=== PATIENT | male | born 1975 | race Caucasian/White ===

== ENCOUNTER 2016-09-05 06:34 | Emergency (ER) | payer OTHER ==
[~2016-09-05] VITALS: Ht 180.3 cm; Wt 90.7 kg
[~2016-09-05 06:34] MED LIST: HYDR-2762 PO
--- NOTE | 2016-09-05 06:43 | PHYS DOC ---
Past Medical History Past Medical History: Alcoholism, Arthritis, Other Additional Past Medical Histor: PSORIASIS Past Surgical History: Other Additional Past Surgical Histo: R HAND Alcohol Use: Heavy Drug Use: None Adult General Chief Complaint Chief Complaint: WITHDRAWL HPI HPI Patient is a 41 year old male presenting to emergency Department for concerns of withdrawal and wanting to detox. Patient says that he has been on a lee recently and drinks a fifth of alcohol daily his last drink was approximately 7 hours prior to arrival. His mother and sister want him to quit and he is willing to go to the detox process but is unwilling to commit to rehabilitation at this time. Patient has tried quitting before in the past including last year where he was admitted here and then stop drinking alcohol for several months but started back up again. He says that he feels somewhat shaky and nauseated. He denies any prior withdrawal seizure history. He is in no obvious distress but somewhat tachycardic and hypertensive. Review of Systems Review of Systems Constitutional: Denies fever or chills [] Eyes: Denies change in visual acuity, redness, or eye pain [] HENT: Denies nasal congestion or sore throat [] Respiratory: Denies cough or shortness of breath [] Cardiovascular: No additional information not addressed in HPI [] GI: Denies abdominal pain. + nausea. No vomiting, bloody stools or diarrhea [] : Denies dysuria or hematuria [] Musculoskeletal: Denies back pain. + diffuse myalgias and arthralgias Integument: Denies rash or skin lesions [] Neurologic: Denies headache, focal weakness or sensory changes [] Current Medications Current Medications Current Medications Medications (Trade) Dose Ordered Sig/Sarahi Start Time Stop Time Status Last Admin Dose Admin Clonidine HCl (Catapres) 0.1 mg 1X ONCE 09/05/16 07:00 09/05/16 07:01 DC 09/05/16 07:14 0.1 MG Lorazepam (Ativan) 1 mg 1X ONCE 09/05/16 07:00 09/05/16 07:01 DC 09/05/16 07:13 1 MG Ondansetron HCl (Zofran) 4 mg 1X ONCE 09/05/16 07:00 09/05/16 07:01 DC 09/05/16 07:10 4 MG Sodium Chloride 1,000 ml @ 1,000 mls/hr 1X ONCE 09/05/16 07:00 09/05/16 07:59 DC 09/05/16 07:09 1,000 MLS/HR Allergies Allergies Allergies Coded Allergies Type Severity Reaction Last Updated Verified No Known Drug Allergies 07/23/15 No Physical Exam Physical Exam Constitutional: Well developed, well nourished, no acute distress, non-toxic appearance. [] HENT: Normocephalic, atraumatic, bilateral external ears normal, oropharynx moist, no oral exudates, nose normal. [] Eyes: PERRLA, EOMI, conjunctiva normal, no discharge. [] Neck: Normal range of motion, no tenderness, supple, no stridor. [] Cardiovascular:Heart rate tachycardic with regular rhythm, no murmur [] Lungs & Thorax: Bilateral breath sounds clear to auscultation [] Abdomen: Bowel sounds normal, soft, no tenderness, no masses, no pulsatile masses. [] Skin: Warm, dry, no erythema, no rash. [] Back: No tenderness, no CVA tenderness. [] Extremities: No tenderness, no cyanosis, no clubbing, ROM intact, no edema. [] Neurologic: Alert and oriented X 3, normal motor function, normal sensory function, no focal deficits noted. [] Current Patient Data Vital Signs Vital Signs Date Time Temp Pulse Resp B/P (MAP) Pulse Ox O2 Delivery O2 Flow Rate FiO2 09/05/16 07:14 104 121/79 09/05/16 06:41 98.9 18 97 Room Air 98.9 Lab Values Laboratory Tests Test 09/05/16 06:45 09/05/16 07:10 White Blood Count 9.2 x10^3/uL (4.0-11.0) Red Blood Count 4.76 x10^6/uL (4.30-5.70) Hemoglobin 13.9 g/dL (13.0-17.5) Hematocrit 41.6 % (39.0-53.0) Mean Corpuscular Volume 87 fL (79-100) Mean Corpuscular Hemoglobin 29 pg (25-35) Mean Corpuscular Hemoglobin Concent 34 g/dL (31-37) Red Cell Distribution Width 13.9 % (11.5-14.5) Platelet Count 349 x10^3/uL (140-400) Neutrophils (%) (Auto) 68 % (31-73) Lymphocytes (%) (Auto) 23 % (24-48) L Monocytes (%) (Auto) 6 % (0-9) Eosinophils (%) (Auto) 3 % (0-3) Basophils (%) (Auto) 1 % (0-3) Neutrophils # (Auto) 6.3 x10^3uL (1.8-7.7) Lymphocytes # (Auto) 2.1 x10^3/uL (1.0-4.8) Monocytes # (Auto) 0.5 x10^3/uL (0.0-1.1) Eosinophils # (Auto) 0.2 x10^3/uL (0.0-0.7) Basophils # (Auto) 0.1 x10^3/uL (0.0-0.2) Sodium Level 137 mmol/L (136-145) Potassium Level 4.3 mmol/L (3.5-5.1) Chloride Level 99 mmol/L (98-107) Carbon Dioxide Level 22 mmol/L (21-32) Anion Gap 16 (6-14) H Blood Urea Nitrogen 13 mg/dL (8-26) Creatinine 0.7 mg/dL (0.7-1.3) Estimated GFR (Cockcroft-Gault) 125.5 BUN/Creatinine Ratio 19 (6-20) Glucose Level 146 mg/dL (70-99) H Calcium Level 9.2 mg/dL (8.5-10.1) Magnesium Level 2.1 mg/dL (1.8-2.4) Total Bilirubin 0.7 mg/dL (0.2-1.0) Aspartate Amino Transferase (AST) 62 U/L (15-37) H Alanine Aminotransferase (ALT) 67 U/L (16-63) H Alkaline Phosphatase 73 U/L (46-116) Creatine Kinase 252 U/L (39-308) Total Protein 8.1 g/dL (6.4-8.2) Albumin 3.8 g/dL (3.4-5.0) Albumin/Globulin Ratio 0.9 (1.0-1.7) L Lipase 297 U/L (73-393) Thyroid Stimulating Hormone (TSH) 0.802 uIU/mL (0.358-3.74) Salicylates Level 3.1 mg/dL (2.8-20.0) Salicylate Last Dose Date Unknown Salicylate Last Dose Time Unknown Acetaminophen Level < 2.0 mcg/ml (10-30) L Acetaminophen Last Dose Date Unknown Acetaminophen Last Dose Time Unknown Ethyl Alcohol Level 179 mg/dL (0-10) H Urine Opiates Screen Neg (NEG) Urine Methadone Screen Neg (NEG) Urine Barbiturates Neg (NEG) Urine Phencyclidine Screen Neg (NEG) Urine Amphetamine/Methamphetamine Neg (NEG) Urine Benzodiazepines Screen Neg (NEG) Urine Cocaine Screen Pos (NEG) Urine Cannabinoids Screen Neg (NEG) Urine Ethyl Alcohol Pos (NEG) Laboratory Tests 09/05/16 06:45 Laboratory Tests 09/05/16 06:45 EKG EKG [] Radiology/Procedures Radiology/Procedures [] Course & Med Decision Making Course & Med Decision Making Patient's withdrawal symptoms are fairly minor as he only has very minor tremors and no tongue fasciculations. He is slightly tachycardic and hypertensive. I spoke to Cherelle and she will come and speak to patient about options for detox. Cherelle of the PACT team spoke to the patient and it does not seem necessary for inpatient detox and he is requesting outpatient resources at this time. He is medically stable with very minor withdrawal symptoms at this time so I will prescribe him Librium for withdrawal symptoms and then Zofran for nausea and told him to drink plenty of water and eat a good diet and come back to the ER sooner with worsening tremors pain confusion seizures or other general concerns. Patient aware and agreeable with plan for discharge and verbalized understanding of the need for short-term follow-up and strict ER return precautions discussed as above. Dragon Disclaimer Dragon Disclaimer This electronic medical record was generated, in whole or in part, using a voice recognition dictation system. Departure Departure Impression: Primary Impression: Alcohol withdrawal Additional Impression: Drug abuse Disposition: 01 HOME, SELF-CARE Condition: GOOD Referrals: BRUNO KRUGER MD (PCP) Patient Instructions: Alcohol Withdrawal Additional Instructions: DRINK PLENTY OF WATER AND EAT A GOOD DIET. USE THE PRESCRIBED MEDICATION ONLY IF YOU ARE TRYING TO QUIT ALCOHOL AND DO NOT DRINK ANY ALCOHOL. Scripts Ondansetron (ZOFRAN ODT) 4 Mg Tab.rapdis 4 MG PO BID Y for NAUSEA/VOMITING, #10 TAB Prov: OLAMIDE BRUNO DO 09/05/16 [Librium] No Conflict Check 25 MG Q8HRS Y for WITHDRAWAL IRRITABILITY, #10 TAKE 1 PILL EVERY 8 HOURS FOR WITHDRAWAL FOR THE 1ST 2 DAYS AND THEN PRN WITHDRAWAL AFTERWARDS. Prov: OLAMIDE BRUNO DO 09/05/16 Problem Qualifiers Primary Impression: Alcohol withdrawal Complication of substance-induced condition: uncomplicated Qualified Codes: F10.230 - Alcohol dependence with withdrawal, uncomplicated OLAMIDE BRUNO DO September 05, 2016 06:43
[2016-09-05 07:00] LABS: BASO # 0.1 x10^3/uL (0.0-0.2); BASO % 1 % (0-3); EOS % 3 % (0-3); HEMATOCRIT 41.6 % (39.0-53.0); HEMOGLOBIN 13.9 g/dL (13.0-17.5); LYMPH # 2.1 x10^3/uL (1.0-4.8); LYMPH % 23 % (24-48); MEAN CORPUSCULAR HEMOGLOBIN 29 pg (25-35); MEAN CORPUSCULAR HGB CONC 34 g/dL (31-37); MEAN CORPUSCULAR VOLUME 87 fL (79-100); MONO % 6 % (0-9); NEUT % 68 % (31-73); PLATELET COUNT 349 x10^3/uL (140-400); RED BLOOD COUNT 4.76 x10^6/uL (4.30-5.70); RED CELL DISTRIBUTION WIDTH 13.9 % (11.5-14.5); WHITE BLOOD COUNT 9.2 x10^3/uL (4.0-11.0)
[2016-09-05] MEDS ORDERED: ONDANSETRON PF 4 MG/2 ML VIAL. IV ONE (07:00)
[2016-09-05] MEDS ORDERED: IV NORMAL SALINE 1000ML BAG 1,000 ML IV ONE (07:00)
[2016-09-05] MEDS ORDERED: cloNIDine HCL 0.1 MG TABLET PO ONE (07:00)
[2016-09-05 07:14] LABS: CALCIUM 9.2 mg/dL (8.5-10.1); CREATININE 0.7 mg/dL (0.7-1.3); GFR 125.5
[2016-09-05 07:17] LABS: ETHANOL 179 mg/dL (0-10); POTASSIUM 4.3 mmol/L (3.5-5.1)
[2016-09-05 07:20] LABS: ALBUMIN 3.8 g/dL (3.4-5.0); ALBUMIN/GLOBULIN RATIO 0.9 (1.0-1.7); MAGNESIUM 2.1 mg/dL (1.8-2.4); TOTAL BILIRUBIN 0.7 mg/dL (0.2-1.0); TOTAL PROTEIN 8.1 g/dL (6.4-8.2)
[2016-09-05 07:25] LABS: BARBITURATES NEG (NEG); BENZODIAZEPINES NEG (NEG); CANNABINOIDS NEG (NEG); COCAINE POS (NEG); METHADONE NEG (NEG); OPIATES NEG (NEG); PHENCYCLIDINE NEG (NEG)
[2016-09-05 08:41] VITALS: BP 128/84
[2016-09-05] MEDS ORDERED: LIBRIUM (08:58)
[2016-09-05] MEDS ORDERED: ONDA4TAB10 PO (08:58)
== END 2016-09-05 09:14 | disposition home or self-care (01) ==
LOC: ER 06:34
DX: F10.239 Alcohol dependence with withdrawal, unspecified (principal); F19.10 Other psychoactive substance abuse, uncomplicated; M19.90 Unspecified osteoarthritis, unspecified site; I10 Essential (primary) hypertension
CPT/HCPCS: 36415; 80053; 80305; 80320; 82550; 83690; 83735; 84443; 85027; 96361; 96374; 96375; 99284; G6038; J2060; J2405; J7030; G0480; G0481; 80196

== ENCOUNTER 2019-01-01 12:27 | Inpatient (IN) | payer OTHER ==
[~2019-01-01] VITALS: Ht 180.3 cm; Wt 92.2 kg
[~2019-01-01 12:27] MED LIST changes: -HYDR-2762 PO; +HYDR-2765 PO; +LIBRIUM; +ONDA4TAB10 PO
[2019-01-01 13:12] LABS: BASO # 0.1 x10^3/uL (0.0-0.2); BASO % 1 % (0-3); EOS % 0 % (0-3); HEMATOCRIT 39.5 % (39.0-53.0); HEMOGLOBIN 13.3 g/dL (13.0-17.5); LYMPH # 1.2 x10^3/uL (1.0-4.8); LYMPH % 13 % (24-48); MEAN CORPUSCULAR HEMOGLOBIN 27 pg (25-35); MEAN CORPUSCULAR HGB CONC 34 g/dL (31-37); MEAN CORPUSCULAR VOLUME 81 fL (79-100); MONO # 0.6 x10^3/uL (0.0-1.1); MONO % 7 % (0-9); NEUT # 6.8 x10^3/uL (1.8-7.7); NEUT % 78 % (31-73); PLATELET COUNT 360 x10^3/uL (140-400); RED BLOOD COUNT 4.89 x10^6/uL (4.30-5.70); RED CELL DISTRIBUTION WIDTH 14.7 % (11.5-14.5); WHITE BLOOD COUNT 8.7 x10^3/uL (4.0-11.0)
[2019-01-01] MEDS ORDERED: MULTIVIT INFUSN,ADULT 4,VIT K 10 ML, THIAMINE INJ 100 MG, FOLIC ACID INJ 1 MG in IV NOR... IV ONE ×2 (13:15→15:45)
[2019-01-01 13:18] LABS: PROTHROMBIN TIME PATIENT 12.6 SEC (11.7-14.0)
[2019-01-01 13:21] LABS: CALCIUM 10.3 mg/dL (8.5-10.1); CREATININE 0.9 mg/dL (0.7-1.3); POTASSIUM 3.7 mmol/L (3.5-5.1)
[2019-01-01 13:26] LABS: ALBUMIN 3.9 g/dL (3.4-5.0); DIRECT BILIRUBIN 0.2 mg/dL (0.0-0.2); MAGNESIUM 1.4 mg/dL (1.8-2.4); TOTAL BILIRUBIN 0.9 mg/dL (0.2-1.0); TOTAL PROTEIN 7.9 g/dL (6.4-8.2)
[2019-01-01] MEDS ORDERED: ONDANSETRON PF 4 MG/2 ML VIAL. IV ONE (13:30)
[2019-01-01] MEDS ORDERED: MAGNESIUM SULFATE 2GM 50 ML IV ONE (14:15)
--- NOTE | 2019-01-01 14:53 | PHYS DOC ---
Past Medical History Past Medical History: Arthritis, Depression Additional Past Medical Histor: PSORIASIS Past Surgical History: Other Additional Past Surgical Histo: R HAND Alcohol Use: Heavy Drug Use: None Adult General Chief Complaint Chief Complaint: WITHDRAWL HPI HPI Patient is a 43 year old male who presents with complaining of alcohol withdrawal. Patient states he had history of alcoholism off and on for many years and was sober for several months and started to drink fifth of whiskey per day for the last 1 week with the last shot last night.Patient states he ran out of alcohol and because of closing the liquor store on Wednesday was not able to get any more alcohol and had shaking and weakness with nausea. Patient denies hallucination and suicidal and homicidal ideation history of seizure with alcohol withdrawal but had hospitalization because of alcohol withdrawal previously. Review of Systems Review of Systems Constitutional: Denies fever or chills [] Eyes: Denies change in visual acuity, redness, or eye pain [] HENT: Denies nasal congestion or sore throat [] Respiratory: Denies cough or shortness of breath [] Cardiovascular: No additional information not addressed in HPI [] GI: Denies abdominal pain, vomiting, bloody stools or diarrhea, reports nausea [] : Denies dysuria or hematuria [] Musculoskeletal: Denies back pain or joint pain [] Integument: Denies rash or skin lesions [] Neurologic: Denies headache, focal weakness or sensory changes [] Endocrine: Denies polyuria or polydipsia [] All other systems were reviewed and found to be within normal limits, except as documented in this note. Current Medications Current Medications Current Medications Medications (Trade) Dose Ordered Sig/Sarahi Start Time Stop Time Status Last Admin Dose Admin Lorazepam (Ativan Inj) 2 mg 1X ONCE 01/01/19 13:30 01/01/19 13:31 DC 01/01/19 13:23 2 MG Magnesium Sulfate 50 ml @ 25 mls/hr 1X ONCE 01/01/19 14:15 01/01/19 16:14 DC 01/01/19 14:27 25 MLS/HR Multivitamins 10 ml/Thiamine HCl 100 mg/Folic Acid 1 mg/Sodium Chloride 1,011.2 ml @ 1,000 mls/ hr 1X ONCE 01/01/19 13:15 01/01/19 14:15 DC 01/01/19 13:12 1,000 MLS/HR Ondansetron HCl (Zofran) 4 mg 1X ONCE 01/01/19 13:30 01/01/19 13:31 DC 01/01/19 13:23 4 MG Allergies Allergies Allergies Coded Allergies Type Severity Reaction Last Updated Verified No Known Drug Allergies 07/23/15 No Physical Exam Physical Exam Constitutional: Well developed, well nourished, mild distress, non-toxic appearance. [] HENT: Normocephalic, atraumatic. Eyes: PERRLA, EOMI, conjunctiva normal, no discharge. [] Neck: Normal range of motion, no tenderness, supple, no stridor. [] Cardiovascular: Tachycardia, no murmur [] Lungs & Thorax: Bilateral breath sounds clear to auscultation [] Abdomen: Bowel sounds normal, soft, no tenderness, no masses, no pulsatile masses. [] Skin: Warm, dry, no erythema, no rash. [] Back: No tenderness, no CVA tenderness. [] Extremities: No tenderness, no cyanosis, no clubbing, ROM intact, no edema. [] Neurologic: Alert and oriented X 3, no focal deficits noted. [] Psychologic: Affect anxious, judgement normal, mood normal. [] Current Patient Data Vital Signs Vital Signs Date Time Temp Pulse Resp B/P (MAP) Pulse Ox O2 Delivery O2 Flow Rate FiO2 01/01/19 13:44 96 18 130/74 (92) 98 01/01/19 13:17 Room Air 01/01/19 12:40 98.7 98.7 Lab Values Laboratory Tests Test 01/01/19 12:55 White Blood Count 8.7 x10^3/uL (4.0-11.0) Red Blood Count 4.89 x10^6/uL (4.30-5.70) Hemoglobin 13.3 g/dL (13.0-17.5) Hematocrit 39.5 % (39.0-53.0) Mean Corpuscular Volume 81 fL (79-100) Mean Corpuscular Hemoglobin 27 pg (25-35) Mean Corpuscular Hemoglobin Concent 34 g/dL (31-37) Red Cell Distribution Width 14.7 % (11.5-14.5) H Platelet Count 360 x10^3/uL (140-400) Neutrophils (%) (Auto) 78 % (31-73) H Lymphocytes (%) (Auto) 13 % (24-48) L Monocytes (%) (Auto) 7 % (0-9) Eosinophils (%) (Auto) 0 % (0-3) Basophils (%) (Auto) 1 % (0-3) Neutrophils # (Auto) 6.8 x10^3/uL (1.8-7.7) Lymphocytes # (Auto) 1.2 x10^3/uL (1.0-4.8) Monocytes # (Auto) 0.6 x10^3/uL (0.0-1.1) Eosinophils # (Auto) 0.0 x10^3/uL (0.0-0.7) Basophils # (Auto) 0.1 x10^3/uL (0.0-0.2) Prothrombin Time 12.6 SEC (11.7-14.0) Prothrombin Time INR 1.0 (0.8-1.1) Sodium Level 139 mmol/L (136-145) Potassium Level 3.7 mmol/L (3.5-5.1) Chloride Level 99 mmol/L (98-107) Carbon Dioxide Level 29 mmol/L (21-32) Anion Gap 11 (6-14) Blood Urea Nitrogen 9 mg/dL (8-26) Creatinine 0.9 mg/dL (0.7-1.3) Estimated GFR (Cockcroft-Gault) 93.0 Glucose Level 99 mg/dL (70-99) Calcium Level 10.3 mg/dL (8.5-10.1) H Magnesium Level 1.4 mg/dL (1.8-2.4) L Total Bilirubin 0.9 mg/dL (0.2-1.0) Direct Bilirubin 0.2 mg/dL (0.0-0.2) Aspartate Amino Transferase (AST) 24 U/L (15-37) Alanine Aminotransferase (ALT) 21 U/L (16-63) Alkaline Phosphatase 88 U/L (46-116) Troponin I Quantitative < 0.017 ng/mL (0.000-0.055) Total Protein 7.9 g/dL (6.4-8.2) Albumin 3.9 g/dL (3.4-5.0) Thyroid Stimulating Hormone (TSH) 1.378 uIU/mL (0.358-3.74) Ethyl Alcohol Level < 10 mg/dL (0-10) Laboratory Tests 01/01/19 12:55 Laboratory Tests 01/01/19 12:55 EKG EKG [] Radiology/Procedures Radiology/Procedures [] Course & Med Decision Making Course & Med Decision Making Pertinent Labs and Imaging studies reviewed. (See chart for details) Evaluation of patient in ER showed 43-year-old male patient with history of alcohol abuse and sign of alcohol withdrawal.Patient requiring admission for further evaluation and treatment. Discussed with Dr. Lawrence who is in agreement with admission. Discussed findings and plan with patient and family, who acknowledge understanding and agreement. Dragon Disclaimer Dragon Disclaimer This electronic medical record was generated, in whole or in part, using a voice recognition dictation system. Departure Departure Impression: Primary Impression: Delirium tremens Additional Impression: Hypomagnesemia Disposition: 09 ADMITTED INPATIENT (at 1440) Admitting Physician: CASSANDRA (Dr. Lawrence accepted admission at 1444) Condition: IMPROVED Referrals: BRUNO KRUGER MD (PCP) Problem Qualifiers SEAN HILLIARD MD Jan 01, 2019 14:53
--- NOTE | 2019-01-01 15:02 | PDOC1 ---
History and Physical Date of Admission Date of Admission DATE: 01/01/19 TIME: 14:58 Identification/Chief Complaint Chief Complaint WITHDRAWL ETOH, MOD SEVERE SYMPTOMS HPI HPI Patient is a 43 year old MALEwho presents with SHAKES, AUDITORY HALLUCINATIONS, VISUAL HALLUCINATIONS, INC ANXIETY,, LAST DRINK 2 DAYS AGO [] Past Medical History Past Medical History Past Medical History Past Medical History: Arthritis, Depression Additional Past Medical Histor: PSORIASIS Past Surgical History: Other Additional Past Surgical Histo: R HAND Alcohol Use: Heavy Drug Use: None PAST MEDICAL HISTORY: Alcohol abuse, arthritis, and psoriasis. PAST SURGICAL HISTORY: Right hand surgery. MEDICATIONS: Admission medications, refer to admission medical reconciliation list. ALLERGIES: No known drug allergies. SOCIAL HISTORY: Smokes less than a pack of cigarettes per day. Uses alcohol heavily and denies use of street drugs. FHX DEPRESSION Cardiovascular: HTN Endocrine: No pertinent hx Dermatology: Psoriasis Family History Family History: High Cholestrol Social History Smoke: <1 pack per day ALCOHOL: heavy Drugs: None Current Problem List Problem List Problems Medical Problems: (1) Delirium tremens Status: Acute (2) Hypomagnesemia Status: Acute Current Medications Current Medications Current Medications Multivitamins 10 ml/Thiamine HCl 100 mg/Folic Acid 1 mg/Sodium Chloride 1,011.2 ml @ 1,000 mls/ hr 1X ONCE IV Last administered on 01/01/19at 13:12; Start 01/01/19 at 13:15; Stop 01/01/19 at 14:15; Status DC Lorazepam (Ativan Inj) 2 mg 1X ONCE IV Last administered on 01/01/19at 13:23; Start 01/01/19 at 13:30; Stop 01/01/19 at 13:31; Status DC Ondansetron HCl (Zofran) 4 mg 1X ONCE IV Last administered on 01/01/19at 13:23; Start 01/01/19 at 13:30; Stop 01/01/19 at 13:31; Status DC Magnesium Sulfate 50 ml @ 25 mls/hr 1X ONCE IV Last administered on 01/01/19at 14:27; Start 01/01/19 at 14:15; Stop 01/01/19 at 16:14 Active Scripts Active Zofran Odt (Ondansetron) 4 Mg Tab.rapdis 4 Mg PO BID PRN [Librium] 25 Mg Q8HRS PRN TAKE 1 PILL EVERY 8 HOURS FOR WITHDRAWAL FOR THE 1ST 2 DAYS AND THEN PRN WITHDRAWAL AFTERWARDS. Allergies Allergies: Coded Allergies: No Known Drug Allergies (Unverified , 07/23/15) ROS Review of System Review of Systems Review of Systems Constitutional: Denies fever or chills [] Eyes: Denies change in visual acuity, redness, or eye pain [] HENT: Denies nasal congestion or sore throat [] Respiratory: Denies cough or shortness of breath [] Cardiovascular: No additional information not addressed in HPI [] GI: Denies abdominal pain, nausea, vomiting, bloody stools or diarrhea [] : Denies dysuria or hematuria [] Musculoskeletal: Denies back pain or joint pain [] Integument: Denies rash or skin lesions [] Neurologic: Denies headache, focal weakness or sensory changes [] Endocrine: Denies polyuria or polydipsia [] 14 PT systems were reviewed and found to be within normal limits, except as documented General: YES: Fatigue PSYCHOLOGICAL ROS: YES: Anxiety, Hallucinations Hematological and Lymphatic: No: Bleeding Problems, Blood Clots, Blood Transfusions, Brusing, Night Sweats, Pallor, Swollen Lymph Nodes, Other Gastrointestinal: Yes Nausea Genitourinary: No Dysuria, No Frequency, No Incontinence, No Hematuria, No Retention, No Discharge, No Urgency, No Pain, No Flank Pain, No Other, No , No , No , No , No , No , No Neurological: Yes Dizziness Skin: No Dry Skin, No Eczema, No Hair Changes, No Lumps, No Mole Changes, No Mottling, No Nail Changes, No Pruritus, No Rash, No Skin Lesion Changes, No Other, No Acne Physical Exam Physical Exam Physical Exam Physical Exam Constitutional: Well developed, well nourished, MILD acute distress, non-toxic appearance. [] HENT: Normocephalic, atraumatic, bilateral external ears normal, oropharynx moist, no oral exudates, nose normal. [] Eyes: PERRLA, EOMI, conjunctiva normal, no discharge. [] Neck: Normal range of motion, no tenderness, supple, no stridor. [] Cardiovascular:Heart rate regular rhythm, no murmur [] Lungs & Thorax: Bilateral breath sounds clear to auscultation [] Abdomen: Bowel sounds normal, soft, no tenderness, no masses, no pulsatile masses. [] Skin: Warm, dry, no erythema, no rash. [] Back: No tenderness, no CVA tenderness. [] Extremities: No tenderness, no cyanosis, no clubbing, ROM intact, no edema. [] Neurologic: Alert and oriented X 3, normal motor function, normal sensory function, no focal deficits noted. [] Psychologic: Affect normal, judgment normal, mood normal. [] General: Alert, Oriented X3, Cooperative, mild distress HEENT: Atraumatic, PERRLA, EOMI, Mucous membr. moist/pink Lungs: Clear to auscultation Heart: S1S2, RRR, no thrills Breasts: Not examined Abdomen: Normal bowel sounds, Soft Rectal Exam: not examined PELVIC: Examination not indicated Extremities: No cyanosis Skin: No breakdown Neuro: Normal speech, Cranial nerves 3-12 NL Psych/Mental Status: Mental status NL Vitals Vitals Vital Signs Date Time Temp Pulse Resp B/P (MAP) Pulse Ox O2 Delivery O2 Flow Rate FiO2 01/01/19 13:44 96 18 130/74 (92) 98 01/01/19 13:17 Room Air 01/01/19 12:40 98.7 98.7 Labs Labs Laboratory Tests Test 01/01/19 12:55 White Blood Count 8.7 x10^3/uL (4.0-11.0) Red Blood Count 4.89 x10^6/uL (4.30-5.70) Hemoglobin 13.3 g/dL (13.0-17.5) Hematocrit 39.5 % (39.0-53.0) Mean Corpuscular Volume 81 fL (79-100) Mean Corpuscular Hemoglobin 27 pg (25-35) Mean Corpuscular Hemoglobin Concent 34 g/dL (31-37) Red Cell Distribution Width 14.7 % (11.5-14.5) Platelet Count 360 x10^3/uL (140-400) Neutrophils (%) (Auto) 78 % (31-73) Lymphocytes (%) (Auto) 13 % (24-48) Monocytes (%) (Auto) 7 % (0-9) Eosinophils (%) (Auto) 0 % (0-3) Basophils (%) (Auto) 1 % (0-3) Neutrophils # (Auto) 6.8 x10^3/uL (1.8-7.7) Lymphocytes # (Auto) 1.2 x10^3/uL (1.0-4.8) Monocytes # (Auto) 0.6 x10^3/uL (0.0-1.1) Eosinophils # (Auto) 0.0 x10^3/uL (0.0-0.7) Basophils # (Auto) 0.1 x10^3/uL (0.0-0.2) Prothrombin Time 12.6 SEC (11.7-14.0) Prothromb Time International Ratio 1.0 (0.8-1.1) Sodium Level 139 mmol/L (136-145) Potassium Level 3.7 mmol/L (3.5-5.1) Chloride Level 99 mmol/L (98-107) Carbon Dioxide Level 29 mmol/L (21-32) Anion Gap 11 (6-14) Blood Urea Nitrogen 9 mg/dL (8-26) Creatinine 0.9 mg/dL (0.7-1.3) Estimated GFR (Cockcroft-Gault) 93.0 Glucose Level 99 mg/dL (70-99) Calcium Level 10.3 mg/dL (8.5-10.1) Magnesium Level 1.4 mg/dL (1.8-2.4) Total Bilirubin 0.9 mg/dL (0.2-1.0) Direct Bilirubin 0.2 mg/dL (0.0-0.2) Aspartate Amino Transf (AST/SGOT) 24 U/L (15-37) Alanine Aminotransferase (ALT/SGPT) 21 U/L (16-63) Alkaline Phosphatase 88 U/L (46-116) Total Protein 7.9 g/dL (6.4-8.2) Albumin 3.9 g/dL (3.4-5.0) Ethyl Alcohol Level < 10 mg/dL (0-10) Laboratory Tests Test 01/01/19 12:55 White Blood Count 8.7 x10^3/uL (4.0-11.0) Red Blood Count 4.89 x10^6/uL (4.30-5.70) Hemoglobin 13.3 g/dL (13.0-17.5) Hematocrit 39.5 % (39.0-53.0) Mean Corpuscular Volume 81 fL (79-100) Mean Corpuscular Hemoglobin 27 pg (25-35) Mean Corpuscular Hemoglobin Concent 34 g/dL (31-37) Red Cell Distribution Width 14.7 % (11.5-14.5) Platelet Count 360 x10^3/uL (140-400) Neutrophils (%) (Auto) 78 % (31-73) Lymphocytes (%) (Auto) 13 % (24-48) Monocytes (%) (Auto) 7 % (0-9) Eosinophils (%) (Auto) 0 % (0-3) Basophils (%) (Auto) 1 % (0-3) Neutrophils # (Auto) 6.8 x10^3/uL (1.8-7.7) Lymphocytes # (Auto) 1.2 x10^3/uL (1.0-4.8) Monocytes # (Auto) 0.6 x10^3/uL (0.0-1.1) Eosinophils # (Auto) 0.0 x10^3/uL (0.0-0.7) Basophils # (Auto) 0.1 x10^3/uL (0.0-0.2) Prothrombin Time 12.6 SEC (11.7-14.0) Prothromb Time International Ratio 1.0 (0.8-1.1) Sodium Level 139 mmol/L (136-145) Potassium Level 3.7 mmol/L (3.5-5.1) Chloride Level 99 mmol/L (98-107) Carbon Dioxide Level 29 mmol/L (21-32) Anion Gap 11 (6-14) Blood Urea Nitrogen 9 mg/dL (8-26) Creatinine 0.9 mg/dL (0.7-1.3) Estimated GFR (Cockcroft-Gault) 93.0 Glucose Level 99 mg/dL (70-99) Calcium Level 10.3 mg/dL (8.5-10.1) Magnesium Level 1.4 mg/dL (1.8-2.4) Total Bilirubin 0.9 mg/dL (0.2-1.0) Direct Bilirubin 0.2 mg/dL (0.0-0.2) Aspartate Amino Transf (AST/SGOT) 24 U/L (15-37) Alanine Aminotransferase (ALT/SGPT) 21 U/L (16-63) Alkaline Phosphatase 88 U/L (46-116) Total Protein 7.9 g/dL (6.4-8.2) Albumin 3.9 g/dL (3.4-5.0) Ethyl Alcohol Level < 10 mg/dL (0-10) VTE Prophylaxis Ordered VTE Prophylaxis Devices: Yes VTE Pharmacological Prophylaxi: Yes Assessment/Plan Assessment/Plan IMPRESSION 1. Acute toxic encephalopathy, secondary to alcohol withdrawal, WITH AUDITORY AND VISUAL HALLUCINATIONS 2. Chronic alcohol abuse. 3. Alcoholic hepatitis, HX 4. History of osteoarthritis. 5. History of psoriasis. PLAN ADMIT ALCOHOL WITHDRAWAL PROTOCOL DVT PROPHYLAXIS GI PROPHYLAXIS 77 MIN PT EXAM, CHART REVIEW, > 50% OF TIME SPENT WITH EXAM, CHART REVIEW, PT CARE COORDINATION CRYSTAL LOPEZ MD Jan 01, 2019 15:02
[2019-01-01] MEDS ORDERED: cloNIDine HCL 0.1 MG TABLET PO PRN ×2 (15:30→15:45)
[2019-01-01] MEDS ORDERED: diphenhydrAMINE 50 MG/ML VIAL IVP PRN ×2 (15:30→15:45)
[2019-01-01] MEDS ORDERED: LORazepam 1 MG TABLET PO PRN ×2 (15:30)
[2019-01-01] MEDS ORDERED: HALOPERIDOL LACTATE 5 MG/ML VIAL. IVP PRN (15:30)
[2019-01-01] MEDS ORDERED: ONDANSETRON ODT 4 MG TAB.RAPDIS. PO PRN (15:30)
[2019-01-01] MEDS ORDERED: 0.9 % SODIUM CHLORIDE 10 ML DISP.SYRIN. IV PRN (15:45)
[2019-01-01] MEDS ORDERED: ZOLPIDEM 5 MG TABLET. PO PRN (15:45)
[2019-01-01] MEDS ORDERED: ACETAMINOPHEN 325 MG TABLET. PO PRN (15:45)
[2019-01-01] MEDS ORDERED: ALBUTEROL SULFATE 2.5 MG/3 ML NEBU. NEB PRN (15:45)
[2019-01-01] MEDS ORDERED: MAG HYDROX/ALUMINUM HYD/SIMETH 30 ML ORAL.SUSP PO PRN (15:45)
[2019-01-01] MEDS ORDERED: DOCUSATE SODIUM 100 MG CAPSULE. PO PRN (15:45)
[2019-01-01] MEDS ORDERED: guaiFENesin ORAL 200 MG/10 ML LIQUID. PO PRN (15:45)
[2019-01-01] MEDS ORDERED: LORazepam 0.5 MG TABLET PO PRN (15:45)
[2019-01-01] MEDS ORDERED: ONDANSETRON PF 4 MG/2 ML VIAL. IV PRN (15:45)
[2019-01-01 15:53] LABS: BILIRUBIN,URINE NEGATIVE (NEG); CLARITY,URINE CLEAR; COLOR,URINE YELLOW; NITRITE,URINE NEGATIVE (NEG); PH,URINE 7.5; PROTEIN,URINE NEGATIVE (NEG-TRACE); UROBILINOGEN,URINE 0.2 mg/dL (0.2 mg/dL)
[2019-01-01 16:00] LABS: AMORPHOUS SEDIMENT,UR PRESENT /HPF; BACTERIA,URINE 0 /HPF (0-FEW); BARBITURATES NEG (NEG); BENZODIAZEPINES NEG (NEG); CANNABINOIDS NEG (NEG); COCAINE NEG (NEG); HYALINE CASTS, URINE MODERATE /HPF; METHADONE NEG (NEG); OPIATES NEG (NEG); PHENCYCLIDINE NEG (NEG); RBC,URINE 0 /HPF (0-2); WBC,URINE 0 /HPF (0-4)
--- NOTE | 2019-01-01 16:02 | RAD ---
STUDY: CT head without contrast INDICATION: Acute encephalopathy. COMPARISON: None. TECHNIQUE: Axial CT imaging through the head without the use of intravenous contrast. Sagittal and coronal reformats were obtained. FINDINGS: Agustin-white matter differentiation is maintained. No mass effect, midline shift or hydrocephalus. No acute intracranial hemorrhage. Mineralization seen at the posterior aspect of the right globe, images 5 and 6, series 2. The calvarium is intact. Small retention cyst within the left axillar sinus. The mastoid air cells are well aerated. IMPRESSION: 1. No CT evidence for an acute cortical infarction. No intracranial hemorrhage. 2. Mineralization at the posterior aspect of the right globe in the region of the optic nerve insertion. This could represent optic drusen or potentially a chronic manifestation of prior chorioretinitis. If there are symptoms referrable to the right eye, ophthalmologic consultation is recommended. Electronically signed by: CHRISTINE DOMINGUEZ MD (01/01/2019 3:59 PM) [facility]
[2019-01-01 16:08] LABS: AMPHETAMINE/METHAMPHETAMINE NEG (NEG)
[2019-01-01 17:00] VITALS: BP 156/71
[2019-01-01] MEDS ORDERED: BUPR150T15 PO (18:17)
[2019-01-01] MEDS ORDERED: ACET325T9 PO (18:17)
[2019-01-01] MEDS ORDERED: IBUP-1027 PO (18:17)
[2019-01-01] MEDS ORDERED: DULO60CA6 PO (18:17)
[2019-01-01] MEDS ORDERED: MONT10TA49 PO (18:17)
[2019-01-01] MEDS ORDERED: CALCIUM CARBONATE 500 MG TAB.CHEW PO PRN (19:15)
[2019-01-01 19:50] VITALS: BP 129/61
[2019-01-01] MEDS: FAMOTIDINE 20 MG TABLET. PO SCH (22:10)
[2019-01-01 23:00] VITALS: BP 131/69
[2019-01-02 03:50] VITALS: BP 129/75
[2019-01-02 04:34] LABS: BASO % 1 % (0-3); EOS # 0.1 x10^3/uL (0.0-0.7); EOS % 2 % (0-3); HEMATOCRIT 35.9 % (39.0-53.0); HEMOGLOBIN 12.1 g/dL (13.0-17.5); LYMPH # 1.2 x10^3/uL (1.0-4.8); LYMPH % 25 % (24-48); MEAN CORPUSCULAR HEMOGLOBIN 27 pg (25-35); MEAN CORPUSCULAR HGB CONC 34 g/dL (31-37); MEAN CORPUSCULAR VOLUME 81 fL (79-100); MONO # 0.5 x10^3/uL (0.0-1.1); MONO % 10 % (0-9); NEUT % 62 % (31-73); PLATELET COUNT 257 x10^3/uL (140-400); RED BLOOD COUNT 4.41 x10^6/uL (4.30-5.70); RED CELL DISTRIBUTION WIDTH 15.2 % (11.5-14.5); WHITE BLOOD COUNT 4.9 x10^3/uL (4.0-11.0)
[2019-01-02 04:48] LABS: CALCIUM 8.7 mg/dL (8.5-10.1); CREATININE 0.8 mg/dL (0.7-1.3); GFR 106.5; POTASSIUM 4.1 mmol/L (3.5-5.1)
[2019-01-02 04:53] LABS: ALBUMIN 3.2 g/dL (3.4-5.0); ALBUMIN/GLOBULIN RATIO 0.9 (1.0-1.7); TOTAL BILIRUBIN 0.6 mg/dL (0.2-1.0); TOTAL PROTEIN 6.6 g/dL (6.4-8.2)
--- NOTE | 2019-01-02 04:54 | CONS ---
DATE OF CONSULTATION: REFERRING PHYSICIAN: Dr. Lawrence. REASON FOR CONSULTATION: Alcohol withdrawal syndrome with hallucinations. HISTORY OF PRESENT ILLNESS: The patient is a pleasant 43-year-old man who is a binge alcoholic. He has been on a current binge for about 5 days. He will typically drink a fifth of whiskey per day. He stopped drinking about 2 days ago. He has been noticing some visual hallucinations. It is if when he looks at the ceiling tile when his eyes are tired and he sees patterns and swirling. He is not having formed visual hallucinations of insects or people. He is also having some auditory hallucinations where at the edge of his hearing, it almost sounds like there is music. There was no specific trigger to this most recent binge. He stopped drinking because he ran out of alcohol on Wednesday and the liquor stores do not open until noon on Wednesday in [place]. He decided to stop drinking. This was preceded by feeling poorly at work last week and having to take a few days off. When he starts drinking, he will forget to take his medicines, some of which are antidepressants and he starts to become depressed. He feels he has not eaten for the last 3 days and primarily has been drinking alcohol. At times, he feels a tiny bit shaky, but has never had major tremor associated with alcohol withdrawal. He usually gets through it within a few days. PAST MEDICAL HISTORY: 1. Binge alcoholism with the longest binge about 3 weeks. 2. History of depression. 3. Psoriasis. 4. Arthritis. ALLERGIES: No known allergies to drugs. MEDICATIONS PRIOR TO ADMISSION: Tylenol as needed, bupropion XL 150 mg, duloxetine 60 mg, ibuprofen 400 mg as needed and montelukast 10 mg daily. FAMILY HISTORY: Pertinent for hypertension and psoriasis as well as depression. SOCIAL HISTORY: He is single and has never been . He does not have children. He lives with his mother, sister and her 2 sons. He works for the [employer]. REVIEW OF SYSTEMS: He has not complained of much headache. There has been no change of vision or hearing. He has had some visual and auditory hallucinations, which are minor. He has been able to chew and swallow without difficulty. He has not had shortness of breath, cough or cold. There has been no chest or abdominal pain. He has some arthritic pain. He has not had fever or rash. Does not have any gastrointestinal or genitourinary complaint. He has some numbness occasionally of his fingers and toes. He has not had any weakness. He has not had seizure. He does not complain of excessive bruising, bleeding or swelling. PHYSICAL EXAMINATION: VITAL SIGNS: The blood pressure was 156/71, pulse 124, respirations 18, temperature 98.6 degrees Fahrenheit. Oximetry was 97% on room air. His weight was 95.3 kilograms, height 71 inches with a calculated body mass index of 29.3. GENERAL: He was alert, awake and cooperative. Speech was fluent and clear. He had a good fund of recent and remote knowledge. Attention and concentration was intact. He appeared well groomed and well nourished. He was fully oriented. NEUROLOGIC: Examination of the cranial nerves revealed visual tanner were full to confrontation with the left eye. 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 Extraocular movements were not intact. The right eye deviated laterally when he looks straight ahead. Pupil on the left eye was 3-4 mm. Funduscopic exam was normal on the left, abnormal on the right. Facial sensation was intact. The muscles of mastication and facial expression were powerful symmetrically. Hearing was intact to finger rub. The palate arched symmetrically and the tongue was midline with full range of motion. Sternocleidomastoid and trapezius were powerful. Muscle bulk and tone was normal. There was no arm drift or abnormal movement. There was no leg drift. The power was full and symmetric in the upper and lower extremities. Reflexes were 2/4 and symmetric in the upper and lower extremities. Toes were downgoing. Coordination testing with [id number], [id number], fine motor and rapid alternating movements was well performed. Sensory exam was intact to pain, light touch, proprioception, graphesthesia, cold thermal and vibration. There was no extinction to double simultaneous stimulation. Gait was normal based and steady. He could heel and toe walk. The Romberg stance was negative. NECK: Auscultation of the carotid arteries did not reveal a bruit. HEART: Rhythm is regular, without a murmur. EXTREMITIES: Peripheral pulses were symmetric. There was no edema or cyanosis. REVIEW OF LABORATORY DATA: CBC revealed a normal white blood cell count, hemoglobin, hematocrit and platelet count. Chemistries from 01/01/2019 revealed normal electrolytes, BUN, creatinine and glucose. Calcium was elevated to 10.3 and magnesium low at 1.4. The liver enzymes were not elevated. Troponin was not elevated. Total protein and albumin were normal. TSH was normal. Urine drug screen was negative. Alcohol was not detected. Urinalysis revealed 40 ketones, 0.2 urobilinogen and moderate hyaline casts. PT/INR was 1. REVIEW OF IMAGING: A CT scan of the brain was performed on 01/01/2019 without contrast. This revealed no evidence of an acute stroke or intracranial process. There was some mineralization at the posterior aspect of the right globe, which is his eye that had a injury. IMPRESSION: The patient is a very pleasant 43-year-old man with a normal neurologic examination. He is a binge alcoholic, but only been drinking for about 5 days. He discontinued about 2 days ago. At this point, he does not look to be in florid withdrawal. He was complaining of some minor hallucinations. The alcohol withdrawal protocol has been activated including multivitamin and thiamine, which is quite appropriate. Hopefully, he would not have to remain in the hospital very long. We discussed that he will be able to get through this withdrawal, but the primary objective would be to have a support system that would help prevent relapse. I appreciate being involved in his care. ZAHRAA MATSON MD DR: GENIA/kiel JOB#: [id number] / [id number] MARIVEL Moore MD, FERILYN MD
[2019-01-02 07:00] VITALS: BP 122/86
--- NOTE | 2019-01-02 08:22 | RAD ---
EXAM: CHEST 1 VIEW History: Hypertension COMPARISON: None available. TECHNIQUE: Single portable radiograph of the chest FINDINGS: The cardiac silhouette is unremarkable. The lungs are clear bilaterally. The costophrenic sulci are clear and well demarcated. IMPRESSION: No radiographic evidence of an acute cardiopulmonary process. Electronically signed by: Koby Luna MD (01/02/2019 8:19 AM) [facility]
[2019-01-02] MEDS ORDERED: ENOXAPARIN 40 MG/0.4 ML SYRINGE. SQ SCH (09:00)
[2019-01-02] MEDS ORDERED: MULTIVIT INFUSN,ADULT 4,VIT K 10 ML, THIAMINE INJ 100 MG, FOLIC ACID INJ 1 MG in IV NOR... IV SCH (09:00)
[2019-01-02] MEDS: FAMOTIDINE 20 MG TABLET. PO SCH (09:03)
--- NOTE | 2019-01-02 10:11 | PDOC ---
PROGRESS NOTES Assessment Problems Medical Problems: (1) Alcohol withdrawal Status: Acute (2) Delirium tremens Status: Acute (3) Hypomagnesemia Status: Acute (4) Toxic encephalopathy Status: Acute Alcoholic encephalopathy, resolved Right eye strabismus, blindness, exotropia, congenital Plan Okay for discharge Patient to abstain from alcohol, he understands Follow-up with neurology as needed. Subjective No complaints, wants to go home Objective Vital Signs Date Time Temp Pulse Resp B/P (MAP) Pulse Ox O2 Delivery O2 Flow Rate FiO2 01/02/19 07:00 97.5 94 16 122/86 (98) Room Air 97.0 97.5 01/02/19 03:50 99 Intake and Output 01/02/19 06:59 Intake Total 300 ml Balance 300 ml Intake Oral 300 ml # Voids 3 PHYSICAL EXAM Alert. Oriented to time, place and person. Left pupil reacts, right doesn't Exotropia and blindness of the right eye CN: no focal findings. Muscle tone: normal. Muscle strength: 5/5 DTR: 2+ Plantar reflex: flexor Gait: normal. Sensory exam: no abnormal findings. No cerebellar signs elicited. Review of Relevant I have reviewed the following items tosha (where applicable) has been applied. Labs Laboratory Tests Test 01/01/19 12:55 01/01/19 15:46 01/02/19 04:01 White Blood Count 8.7 x10^3/uL (4.0-11.0) 4.9 x10^3/uL (4.0-11.0) Red Blood Count 4.89 x10^6/uL (4.30-5.70) 4.41 x10^6/uL (4.30-5.70) Hemoglobin 13.3 g/dL (13.0-17.5) 12.1 g/dL (13.0-17.5) Hematocrit 39.5 % (39.0-53.0) 35.9 % (39.0-53.0) Mean Corpuscular Volume 81 fL (79-100) 81 fL (79-100) Mean Corpuscular Hemoglobin 27 pg (25-35) 27 pg (25-35) Mean Corpuscular Hemoglobin Concent 34 g/dL (31-37) 34 g/dL (31-37) Red Cell Distribution Width 14.7 % (11.5-14.5) 15.2 % (11.5-14.5) Platelet Count 360 x10^3/uL (140-400) 257 x10^3/uL (140-400) Neutrophils (%) (Auto) 78 % (31-73) 62 % (31-73) Lymphocytes (%) (Auto) 13 % (24-48) 25 % (24-48) Monocytes (%) (Auto) 7 % (0-9) 10 % (0-9) Eosinophils (%) (Auto) 0 % (0-3) 2 % (0-3) Basophils (%) (Auto) 1 % (0-3) 1 % (0-3) Neutrophils # (Auto) 6.8 x10^3/uL (1.8-7.7) 3.0 x10^3/uL (1.8-7.7) Lymphocytes # (Auto) 1.2 x10^3/uL (1.0-4.8) 1.2 x10^3/uL (1.0-4.8) Monocytes # (Auto) 0.6 x10^3/uL (0.0-1.1) 0.5 x10^3/uL (0.0-1.1) Eosinophils # (Auto) 0.0 x10^3/uL (0.0-0.7) 0.1 x10^3/uL (0.0-0.7) Basophils # (Auto) 0.1 x10^3/uL (0.0-0.2) 0.0 x10^3/uL (0.0-0.2) Prothrombin Time 12.6 SEC (11.7-14.0) Prothromb Time International Ratio 1.0 (0.8-1.1) Sodium Level 139 mmol/L (136-145) 143 mmol/L (136-145) Potassium Level 3.7 mmol/L (3.5-5.1) 4.1 mmol/L (3.5-5.1) Chloride Level 99 mmol/L (98-107) 107 mmol/L (98-107) Carbon Dioxide Level 29 mmol/L (21-32) 29 mmol/L (21-32) Anion Gap 11 (6-14) 7 (6-14) Blood Urea Nitrogen 9 mg/dL (8-26) 8 mg/dL (8-26) Creatinine 0.9 mg/dL (0.7-1.3) 0.8 mg/dL (0.7-1.3) Estimated GFR (Cockcroft-Gault) 93.0 106.5 Glucose Level 99 mg/dL (70-99) 103 mg/dL (70-99) Calcium Level 10.3 mg/dL (8.5-10.1) 8.7 mg/dL (8.5-10.1) Magnesium Level 1.4 mg/dL (1.8-2.4) Total Bilirubin 0.9 mg/dL (0.2-1.0) 0.6 mg/dL (0.2-1.0) Direct Bilirubin 0.2 mg/dL (0.0-0.2) Aspartate Amino Transf (AST/SGOT) 24 U/L (15-37) 19 U/L (15-37) Alanine Aminotransferase (ALT/SGPT) 21 U/L (16-63) 15 U/L (16-63) Alkaline Phosphatase 88 U/L (46-116) 72 U/L (46-116) Troponin I Quantitative < 0.017 ng/mL (0.000-0.055) Total Protein 7.9 g/dL (6.4-8.2) 6.6 g/dL (6.4-8.2) Albumin 3.9 g/dL (3.4-5.0) 3.2 g/dL (3.4-5.0) Thyroid Stimulating Hormone (TSH) 1.378 uIU/mL (0.358-3.74) Ethyl Alcohol Level < 10 mg/dL (0-10) Urine Collection Type Unknown Urine Color Yellow Urine Clarity Clear Urine pH 7.5 Urine Specific [place] 1.015 Urine Protein Negative mg/dL (NEG-TRACE) Urine Glucose (UA) Negative mg/dL (NEG) Urine Ketones (Stick) 40 mg/dL (NEG) Urine Blood Negative (NEG) Urine Nitrite Negative (NEG) Urine Bilirubin Negative (NEG) Urine Urobilinogen Dipstick 0.2 mg/dL (0.2 mg/dL) Urine Leukocyte Esterase Negative (NEG) Urine RBC 0 /HPF (0-2) Urine WBC 0 /HPF (0-4) Urine Amorphous Sediment Present /HPF Urine Bacteria 0 /HPF (0-FEW) Urine Hyaline Casts Moderate /HPF Urine Mucus Mod /LPF Urine Opiates Screen Neg (NEG) Urine Methadone Screen Neg (NEG) Urine Barbiturates Neg (NEG) Urine Phencyclidine Screen Neg (NEG) Urine Amphetamine/Methamphetamine Neg (NEG) Urine Benzodiazepines Screen Neg (NEG) Urine Cocaine Screen Neg (NEG) Urine Cannabinoids Screen Neg (NEG) Urine Ethyl Alcohol Neg (NEG) BUN/Creatinine Ratio 10 (6-20) Albumin/Globulin Ratio 0.9 (1.0-1.7) Laboratory Tests Test 01/01/19 12:55 01/01/19 15:46 01/02/19 04:01 White Blood Count 8.7 x10^3/uL (4.0-11.0) 4.9 x10^3/uL (4.0-11.0) Red Blood Count 4.89 x10^6/uL (4.30-5.70) 4.41 x10^6/uL (4.30-5.70) Hemoglobin 13.3 g/dL (13.0-17.5) 12.1 g/dL (13.0-17.5) Hematocrit 39.5 % (39.0-53.0) 35.9 % (39.0-53.0) Mean Corpuscular Volume 81 fL (79-100) 81 fL (79-100) Mean Corpuscular Hemoglobin 27 pg (25-35) 27 pg (25-35) Mean Corpuscular Hemoglobin Concent 34 g/dL (31-37) 34 g/dL (31-37) Red Cell Distribution Width 14.7 % (11.5-14.5) 15.2 % (11.5-14.5) Platelet Count 360 x10^3/uL (140-400) 257 x10^3/uL (140-400) Neutrophils (%) (Auto) 78 % (31-73) 62 % (31-73) Lymphocytes (%) (Auto) 13 % (24-48) 25 % (24-48) Monocytes (%) (Auto) 7 % (0-9) 10 % (0-9) Eosinophils (%) (Auto) 0 % (0-3) 2 % (0-3) Basophils (%) (Auto) 1 % (0-3) 1 % (0-3) Neutrophils # (Auto) 6.8 x10^3/uL (1.8-7.7) 3.0 x10^3/uL (1.8-7.7) Lymphocytes # (Auto) 1.2 x10^3/uL (1.0-4.8) 1.2 x10^3/uL (1.0-4.8) Monocytes # (Auto) 0.6 x10^3/uL (0.0-1.1) 0.5 x10^3/uL (0.0-1.1) Eosinophils # (Auto) 0.0 x10^3/uL (0.0-0.7) 0.1 x10^3/uL (0.0-0.7) Basophils # (Auto) 0.1 x10^3/uL (0.0-0.2) 0.0 x10^3/uL (0.0-0.2) Prothrombin Time 12.6 SEC (11.7-14.0) Prothromb Time International Ratio 1.0 (0.8-1.1) Sodium Level 139 mmol/L (136-145) 143 mmol/L (136-145) Potassium Level 3.7 mmol/L (3.5-5.1) 4.1 mmol/L (3.5-5.1) Chloride Level 99 mmol/L (98-107) 107 mmol/L (98-107) Carbon Dioxide Level 29 mmol/L (21-32) 29 mmol/L (21-32) Anion Gap 11 (6-14) 7 (6-14) Blood Urea Nitrogen 9 mg/dL (8-26) 8 mg/dL (8-26) Creatinine 0.9 mg/dL (0.7-1.3) 0.8 mg/dL (0.7-1.3) Estimated GFR (Cockcroft-Gault) 93.0 106.5 Glucose Level 99 mg/dL (70-99) 103 mg/dL (70-99) Calcium Level 10.3 mg/dL (8.5-10.1) 8.7 mg/dL (8.5-10.1) Magnesium Level 1.4 mg/dL (1.8-2.4) Total Bilirubin 0.9 mg/dL (0.2-1.0) 0.6 mg/dL (0.2-1.0) Direct Bilirubin 0.2 mg/dL (0.0-0.2) Aspartate Amino Transf (AST/SGOT) 24 U/L (15-37) 19 U/L (15-37) Alanine Aminotransferase (ALT/SGPT) 21 U/L (16-63) 15 U/L (16-63) Alkaline Phosphatase 88 U/L (46-116) 72 U/L (46-116) Troponin I Quantitative < 0.017 ng/mL (0.000-0.055) Total Protein 7.9 g/dL (6.4-8.2) 6.6 g/dL (6.4-8.2) Albumin 3.9 g/dL (3.4-5.0) 3.2 g/dL (3.4-5.0) Thyroid Stimulating Hormone (TSH) 1.378 uIU/mL (0.358-3.74) Ethyl Alcohol Level < 10 mg/dL (0-10) Urine Collection Type Unknown Urine Color Yellow Urine Clarity Clear Urine pH 7.5 Urine Specific [place] 1.015 Urine Protein Negative mg/dL (NEG-TRACE) Urine Glucose (UA) Negative mg/dL (NEG) Urine Ketones (Stick) 40 mg/dL (NEG) Urine Blood Negative (NEG) Urine Nitrite Negative (NEG) Urine Bilirubin Negative (NEG) Urine Urobilinogen Dipstick 0.2 mg/dL (0.2 mg/dL) Urine Leukocyte Esterase Negative (NEG) Urine RBC 0 /HPF (0-2) Urine WBC 0 /HPF (0-4) Urine Amorphous Sediment Present /HPF Urine Bacteria 0 /HPF (0-FEW) Urine Hyaline Casts Moderate /HPF Urine Mucus Mod /LPF Urine Opiates Screen Neg (NEG) Urine Methadone Screen Neg (NEG) Urine Barbiturates Neg (NEG) Urine Phencyclidine Screen Neg (NEG) Urine Amphetamine/Methamphetamine Neg (NEG) Urine Benzodiazepines Screen Neg (NEG) Urine Cocaine Screen Neg (NEG) Urine Cannabinoids Screen Neg (NEG) Urine Ethyl Alcohol Neg (NEG) BUN/Creatinine Ratio 10 (6-20) Albumin/Globulin Ratio 0.9 (1.0-1.7) Medications Current Medications Multivitamins 10 ml/Thiamine HCl 100 mg/Folic Acid 1 mg/Sodium Chloride 1,011.2 ml @ 1,000 mls/ hr 1X ONCE IV Last administered on 01/01/19at 13:12; Start 01/01/19 at 13:15; Stop 01/01/19 at 14:15; Status DC Lorazepam (Ativan Inj) 2 mg 1X ONCE IV Last administered on 01/01/19at 13:23; Start 01/01/19 at 13:30; Stop 01/01/19 at 13:31; Status DC Ondansetron HCl (Zofran) 4 mg 1X ONCE IV Last administered on 01/01/19at 13:23; Start 01/01/19 at 13:30; Stop 01/01/19 at 13:31; Status DC Magnesium Sulfate 50 ml @ 25 mls/hr 1X ONCE IV Last administered on 01/01/19at 14:27; Start 01/01/19 at 14:15; Stop 01/01/19 at 16:14; Status DC Ondansetron HCl (Zofran Odt) 4 mg PRN BID PRN PO NAUSEA/VOMITING Last administered on 01/01/19at 18:16; Start 01/01/19 at 15:30 Multivitamins 10 ml/Thiamine HCl 100 mg/Folic Acid 1 mg/Sodium Chloride 1,011.2 ml @ 100 mls/ hr DAILY IV Last administered on 01/02/19at 09:06; Start 01/02/19 at 09:00; Stop 01/06/19 at 19:07 Multivitamins (Thera M Plus) 1 tab DAILY PO ; Start 01/07/19 at 09:00 Folic Acid (Folic Acid) 1 mg DAILY PO ; Start 01/07/19 at 09:00 Thiamine HCl 100 mg/Dextrose 51 ml @ 100 mls/hr DAILY IV ; Start 01/07/19 at 09:00; Stop 01/11/19 at 09:31 Lorazepam (Ativan) 4 mg PRN Q1HR PRN PO For CIWA 8-14 Last administered on 01/01/19at 22:15; Start 01/01/19 at 15:30 Lorazepam (Ativan) 8 mg PRN Q1HR PRN PO For CIWA 15 or greater; Start 01/01/19 at 15:30 Lorazepam (Ativan Inj) 2 mg PRN Q1HR PRN IV For CIWA 8-14; Start 01/01/19 at 15:30 Lorazepam (Ativan Inj) 4 mg PRN Q1HR PRN IV For CIWA 15 or greater; Start 01/01/19 at 15:30 Haloperidol Lactate (Haldol Inj) 5 mg PRN Q4HRS PRN IVP Hallucinatns,Con fusn,Delirium; Start 01/01/19 at 15:30 Diphenhydramine HCl (Benadryl) 25 mg PRN Q15MIN PRN IVP EPS symptoms 2'Haldol admin; Start 01/01/19 at 15:30 Clonidine HCl (Catapres) 0.1 mg PRN Q1HR PRN PO SBP > 180 or DBP > 100, MRX3; Start 01/01/19 at 15:30 Lorazepam (Ativan Inj) 2 mg PRN Q15MIN PRN IV SEE COMMENTS; Start 01/01/19 at 15:30 Lorazepam (Ativan Inj) 4 mg PRN Q15MIN PRN IV SEE COMMENTS; Start 01/01/19 at 15:30 Sodium Chloride (Normal Saline Flush) 3 ml QSHIFT PRN IV AFTER MEDS AND BLOOD DRAWS; Start 01/01/19 at 15:45 Multivitamins 10 ml/Thiamine HCl 100 mg/Folic Acid 1 mg/Sodium Chloride 1,011.2 ml @ 125 mls/ hr 1X ONCE IV ; Start 01/01/19 at 15:45; Stop 01/01/19 at 23:50; Status UNV Ondansetron HCl (Zofran) 4 mg PRN Q4HRS PRN IV NAUSEA/VOMITING; Start 01/01/19 at 15:45 Zolpidem Tartrate (Ambien) 5 mg PRN QHS PRN PO INSOMNIA; Start 01/01/19 at 15:45 Acetaminophen (Tylenol) 650 mg PRN Q4HRS PRN PO TEMP OVER 100.4F OR MILD PAIN; Start 01/01/19 at 15:45 Al Hydroxide/Mg Hydroxide (Mylanta Plus Xs) 30 ml PRN DAILY PRN PO HEARTBURN / GAS Last administered on 01/01/19at 22:15; Start 01/01/19 at 15:45 Clonidine HCl (Catapres) 0.1 mg PRN Q6HRS PRN PO SBP>160 OR DBP>90; Start 01/01/19 at 15:45 Diphenhydramine HCl (Benadryl) 25 mg PRN Q4HRS PRN IVP ITCHING; Start 01/01/19 at 15:45 Docusate Sodium (Colace) 100 mg PRN BID PRN PO CONSTIPATION; Start 01/01/19 at 15:45 Albuterol Sulfate (Ventolin Neb Soln) 2.5 mg PRN Q4HRS PRN NEB SHORTNESS OF BREATH; Start 01/01/19 at 15:45 Guaifenesin (Robitussin) 200 mg PRN Q4HRS PRN PO COUGH; Start 01/01/19 at 15:45 Lorazepam (Ativan) 0.5 mg PRN Q4HRS PRN PO ANXIETY / AGITATION Last administere d on 01/01/19at 18:16; Start 01/01/19 at 15:45 Lorazepam (Ativan Inj) 2 mg PRN Q4HRS PRN IV ANXIETY / AGITATION; Start 01/01/19 at 15:45 Enoxaparin Sodium (Lovenox 40mg Syringe) 40 mg DAILY SQ Last administered on 01/02/19at 09:03; Start 01/02/19 at 09:00 Calcium Carbonate/ Glycine (Tums) 500 mg PRN Q3HRS PRN PO INDIGESTION; Start 01/01/19 at 19:15 Famotidine (Pepcid) 20 mg BID PO Last administered on 01/02/19at 09:03; Start 01/01/19 at 21:00 Active Scripts Active Reported Singulair Tablet (Montelukast Sodium) 10 Mg Tablet 10 Mg PO DAILY Ibuprofen 400 Mg Tablet 400 Mg PO PRN Q6HRS PRN Tylenol (Acetaminophen) 325 Mg Tablet 650 Mg PO Q6HRS Wellbutrin Xl (Bupropion Hcl) 150 Mg Tab.er.24h 75 Mg PO DAILY Cymbalta (Duloxetine Hcl) 60 Mg Capsule.dr 60 Mg PO DAILY Vitals/I & O Vital Sign - Last 24 Hours 01/01/19 01/01/19 01/01/19 01/01/19 12:40 13:17 13:29 13:44 Temp 98.7 98.7 Pulse 111 94 90 96 Resp 18 18 18 B/P (MAP) 151/93 (112) 160/79 (106) 136/71 (92) 130/74 (92) Pulse Ox 96 98 O2 Delivery Room Air Room Air 01/01/19 01/01/19 01/01/19 01/01/19 16:45 17:00 19:50 20:30 Temp 98.6 98.4 98.6 98.4 Pulse 88 124 120 Resp 16 18 20 B/P (MAP) 130/70 (90) 156/71 (99) 129/61 (83) Pulse Ox 97 97 97 O2 Delivery Room Air Room Air Room Air 01/01/19 01/02/19 01/02/19 23:00 03:50 07:00 Temp 98.0 98.3 97.5 98.0 98.3 97.5 Pulse 100 84 94 Resp 18 16 16 B/P (MAP) 131/69 (89) 129/75 (93) 122/86 (98) Pulse Ox 96 99 O2 Delivery Room Air Room Air Room Air O2 Flow Rate 97.0 Intake and Output 01/01/19 01/01/19 01/02/19 14:59 22:59 06:59 Intake Total 300 ml Balance 300 ml MARIVEL CASTILLO MD Jan 02, 2019 10:11
[2019-01-02 11:00] VITALS: BP 124/75
--- NOTE | 2019-01-02 12:54 | PDOC ---
[facility] [facility] PROGRESS NOTE Chief Complaint Chief Complaint ETOH abuse with redraw Arthritis, Depression Psoriasis R HAND surgery History of Present Illness History of Present Illness Pt seen and examined VSS Request dc AMALIA RN Vitals/I&O Vitals/I&O: Vital Signs Date Time Temp Pulse Resp B/P (MAP) Pulse Ox O2 Delivery O2 Flow Rate FiO2 01/02/19 11:00 98.4 92 18 124/75 (91) 99 Room Air 98.4 01/02/19 08:00 97.0 I & O 01/01/19 01/01/19 01/02/19 15:00 23:00 07:00 Intake Total 300 ml Balance 300 ml Physical Exam General: Alert, Oriented X3, Cooperative, mild distress Heart: Regular rate, Normal S1 Abdomen: Normal bowel sounds, Soft Extremities: No cyanosis Skin: No breakdown Labs Labs: Laboratory Tests Test 01/01/19 12:55 01/01/19 15:46 01/02/19 04:01 White Blood Count 8.7 x10^3/uL (4.0-11.0) 4.9 x10^3/uL (4.0-11.0) Red Blood Count 4.89 x10^6/uL (4.30-5.70) 4.41 x10^6/uL (4.30-5.70) Hemoglobin 13.3 g/dL (13.0-17.5) 12.1 g/dL (13.0-17.5) Hematocrit 39.5 % (39.0-53.0) 35.9 % (39.0-53.0) Mean Corpuscular Volume 81 fL (79-100) 81 fL (79-100) Mean Corpuscular Hemoglobin 27 pg (25-35) 27 pg (25-35) Mean Corpuscular Hemoglobin Concent 34 g/dL (31-37) 34 g/dL (31-37) Red Cell Distribution Width 14.7 % (11.5-14.5) 15.2 % (11.5-14.5) Platelet Count 360 x10^3/uL (140-400) 257 x10^3/uL (140-400) Neutrophils (%) (Auto) 78 % (31-73) 62 % (31-73) Lymphocytes (%) (Auto) 13 % (24-48) 25 % (24-48) Monocytes (%) (Auto) 7 % (0-9) 10 % (0-9) Eosinophils (%) (Auto) 0 % (0-3) 2 % (0-3) Basophils (%) (Auto) 1 % (0-3) 1 % (0-3) Neutrophils # (Auto) 6.8 x10^3/uL (1.8-7.7) 3.0 x10^3/uL (1.8-7.7) Lymphocytes # (Auto) 1.2 x10^3/uL (1.0-4.8) 1.2 x10^3/uL (1.0-4.8) Monocytes # (Auto) 0.6 x10^3/uL (0.0-1.1) 0.5 x10^3/uL (0.0-1.1) Eosinophils # (Auto) 0.0 x10^3/uL (0.0-0.7) 0.1 x10^3/uL (0.0-0.7) Basophils # (Auto) 0.1 x10^3/uL (0.0-0.2) 0.0 x10^3/uL (0.0-0.2) Prothrombin Time 12.6 SEC (11.7-14.0) Prothromb Time International Ratio 1.0 (0.8-1.1) Sodium Level 139 mmol/L (136-145) 143 mmol/L (136-145) Potassium Level 3.7 mmol/L (3.5-5.1) 4.1 mmol/L (3.5-5.1) Chloride Level 99 mmol/L (98-107) 107 mmol/L (98-107) Carbon Dioxide Level 29 mmol/L (21-32) 29 mmol/L (21-32) Anion Gap 11 (6-14) 7 (6-14) Blood Urea Nitrogen 9 mg/dL (8-26) 8 mg/dL (8-26) Creatinine 0.9 mg/dL (0.7-1.3) 0.8 mg/dL (0.7-1.3) Estimated GFR (Cockcroft-Gault) 93.0 106.5 Glucose Level 99 mg/dL (70-99) 103 mg/dL (70-99) Calcium Level 10.3 mg/dL (8.5-10.1) 8.7 mg/dL (8.5-10.1) Magnesium Level 1.4 mg/dL (1.8-2.4) Total Bilirubin 0.9 mg/dL (0.2-1.0) 0.6 mg/dL (0.2-1.0) Direct Bilirubin 0.2 mg/dL (0.0-0.2) Aspartate Amino Transf (AST/SGOT) 24 U/L (15-37) 19 U/L (15-37) Alanine Aminotransferase (ALT/SGPT) 21 U/L (16-63) 15 U/L (16-63) Alkaline Phosphatase 88 U/L (46-116) 72 U/L (46-116) Troponin I Quantitative < 0.017 ng/mL (0.000-0.055) Total Protein 7.9 g/dL (6.4-8.2) 6.6 g/dL (6.4-8.2) Albumin 3.9 g/dL (3.4-5.0) 3.2 g/dL (3.4-5.0) Thyroid Stimulating Hormone (TSH) 1.378 uIU/mL (0.358-3.74) Ethyl Alcohol Level < 10 mg/dL (0-10) Urine Collection Type Unknown Urine Color Yellow Urine Clarity Clear Urine pH 7.5 Urine Specific [place] 1.015 Urine Protein Negative mg/dL (NEG-TRACE) Urine Glucose (UA) Negative mg/dL (NEG) Urine Ketones (Stick) 40 mg/dL (NEG) Urine Blood Negative (NEG) Urine Nitrite Negative (NEG) Urine Bilirubin Negative (NEG) Urine Urobilinogen Dipstick 0.2 mg/dL (0.2 mg/dL) Urine Leukocyte Esterase Negative (NEG) Urine RBC 0 /HPF (0-2) Urine WBC 0 /HPF (0-4) Urine Amorphous Sediment Present /HPF Urine Bacteria 0 /HPF (0-FEW) Urine Hyaline Casts Moderate /HPF Urine Mucus Mod /LPF Urine Opiates Screen Neg (NEG) Urine Methadone Screen Neg (NEG) Urine Barbiturates Neg (NEG) Urine Phencyclidine Screen Neg (NEG) Urine Amphetamine/Methamphetamine Neg (NEG) Urine Benzodiazepines Screen Neg (NEG) Urine Cocaine Screen Neg (NEG) Urine Cannabinoids Screen Neg (NEG) Urine Ethyl Alcohol Neg (NEG) BUN/Creatinine Ratio 10 (6-20) Albumin/Globulin Ratio 0.9 (1.0-1.7) Review of Systems Review of Systems: co weakness co depression Assessment and Plan Assessmemt and Plan Problems Medical Problems: (1) Alcohol withdrawal Status: Acute (2) Delirium tremens Status: Acute (3) Hypomagnesemia Status: Acute (4) Toxic encephalopathy Status: Acute ETOH abuse with redraw Arthritis, Depression Psoriasis R HAND surgery Plan ETOH protocol Benzos Bannana Bag Home meds Probable dc later today Comment Review of Relevant I have reviewed the following items tosha (where applicable) has been applied. Medications: Current Medications Medications (Trade) Dose Ordered Sig/Sarahi Route PRN Reason Start Time Stop Time Status Last Admin Dose Admin Multivitamins 10 ml/Thiamine HCl 100 mg/Folic Acid 1 mg/Sodium Chloride 1,011.2 ml @ 1,000 mls/ hr 1X ONCE IV 01/01/19 13:15 01/01/19 14:15 DC 01/01/19 13:12 Lorazepam (Ativan Inj) 2 mg 1X ONCE IV 01/01/19 13:30 01/01/19 13:31 DC 01/01/19 13:23 Ondansetron HCl (Zofran) 4 mg 1X ONCE IV 01/01/19 13:30 01/01/19 13:31 DC 01/01/19 13:23 Magnesium Sulfate 50 ml @ 25 mls/hr 1X ONCE IV 01/01/19 14:15 01/01/19 16:14 DC 01/01/19 14:27 Ondansetron HCl (Zofran Odt) 4 mg PRN BID PRN PO NAUSEA/VOMITING 01/01/19 15:30 01/01/19 18:16 Multivitamins 10 ml/Thiamine HCl 100 mg/Folic Acid 1 mg/Sodium Chloride 1,011.2 ml @ 100 mls/ hr DAILY IV 01/02/19 09:00 01/06/19 19:07 01/02/19 09:06 Lorazepam (Ativan) 4 mg PRN Q1HR PRN PO For CIWA 8-14 01/01/19 15:30 01/01/19 22:15 Al Hydroxide/Mg Hydroxide (Mylanta Plus Xs) 30 ml PRN DAILY PRN PO HEARTBURN / GAS 01/01/19 15:45 01/01/19 22:15 Lorazepam (Ativan) 0.5 mg PRN Q4HRS PRN PO ANXIETY / AGITATION 01/01/19 15:45 01/01/19 18:16 Enoxaparin Sodium (Lovenox 40mg Syringe) 40 mg DAILY SQ 01/02/19 09:00 01/02/19 09:03 Famotidine (Pepcid) 20 mg BID PO 01/01/19 21:00 01/02/19 09:03 RAMY GARCIA III DO Jan 02, 2019 12:54
--- NOTE | 2019-01-02 14:08 | NUR ---
Discharged patient to home. Discharge instructions given to patient and verbalized understanding. Escorted patient to front entrance per wheelchair into a private vehicle.
[2019-01-07] MEDS ORDERED: MULTIVITAMIN with MINERAL TABLET. PO SCH (09:00)
[2019-01-07] MEDS ORDERED: FOLIC ACID 1 MG TABLET. PO SCH (09:00)
[2019-01-07] MEDS ORDERED: THIAMINE INJ 100 MG in IV DEXTROSE 5% 50 ML IV SCH (09:00)
== END 2019-01-02 14:05 | disposition home or self-care (01) | DRG 57 ==
LOC: ER 12:27 → 2 SOUTH 14:40
PROVIDERS: ADMIT Family Medicine; ATTEND Family Medicine
DX: G31.2 Degeneration of nervous system due to alcohol (principal); F10.231 Alcohol dependence with withdrawal delirium; F32.9 Major depressive disorder, single episode, unspecified; M19.90 Unspecified osteoarthritis, unspecified site; L40.9 Psoriasis, unspecified; E83.42 Hypomagnesemia; F41.9 Anxiety disorder, unspecified; F17.210 Nicotine dependence, cigarettes, uncomplicated; I10 Essential (primary) hypertension; K70.10 Alcoholic hepatitis without ascites; H50.9 Unspecified strabismus; H54.7 Unspecified visual loss; H50.10 Unspecified exotropia; Z81.8 Family history of other mental and behavioral disorders; Z82.49 Family history of ischemic heart disease and other diseases of the circulatory system
CPT/HCPCS: 36415; 70450; 71045; 80048; 80053; 80076; 80307; 81001; 83735; 84443; 84484; 85025; 85610; 96365; 96366; 96367; 96375; G0480; J1650; J2060; J2405; J3475; J7030; Q0162; 99285-25; G0378